=== PATIENT | female | born 1985 | race Caucasian/White ===

== ENCOUNTER 2019-01-17 20:00 | Inpatient (IN) | payer MEDICAID ==
[~2019-01-17] VITALS: Ht 157.5 cm; Wt 78.4 kg
[2019-01-17 22:16] VITALS: Ht 157.5 cm; Wt 78.4 kg
[2019-01-17] MEDS ORDERED: LACTATED RINGER'S 1,000 ML IV PRN (22:17)
[2019-01-17 22:28] VITALS: BP 109/58; PULSE 88; RESP 18
[2019-01-17] MEDS ORDERED: LIDOCAINE 1% (MPF) 30 ML INJ INJ PRN (22:30)
[2019-01-17] MEDS ORDERED: IBUPROFEN 600 MG TAB PO PRN (22:30)
[2019-01-17] MEDS ORDERED: MISOPROSTOL 200 MCG TAB PR PRN (22:30)
[2019-01-17] MEDS ORDERED: BUTORPHANOL 2 MG INJ IV PRN (22:30)
[2019-01-17] MEDS ORDERED: OXYTOCIN 30 UNITS/LR 500 ML IV PRN (22:30)
[2019-01-17] MEDS ORDERED: BUTORPHANOL 1 MG INJ IV PRN (22:30)
[2019-01-17] MEDS ORDERED: METHYLERGONOVINE 0.2 MG INJ IM PRN (22:30)
[2019-01-17] MEDS ORDERED: CARBOPROST 250 MCG INJ IM PRN (22:30)
[2019-01-17] MEDS ORDERED: OXYTOCIN 30 UNITS/LR 500 ML IV SCH ×2 (22:30)
[2019-01-17] MEDS: LACTATED RINGER'S 1,000 ML IV SCH (22:47)
[2019-01-18] MEDS ORDERED: MISOPROSTOL 50 MCG CAPSULE PO ONE
[2019-01-18] MEDS: LACTATED RINGER'S 1,000 ML IV SCH (04:55)
[2019-01-18] MEDS ORDERED: OXYTOCIN 30 UNITS/LR 500 ML IV PRN ×2 (06:00→10:00)
[2019-01-18] MEDS ORDERED: DEXTROSE 5%-LR 1,000 ML IV PRN (06:00)
[2019-01-18] MEDS ORDERED: MINERAL OIL LIGHT 10 ML VIAL TOP ONE (07:00)
[2019-01-18] MEDS: DEXTROSE 5%-LR 1,000 ML IV SCH ×2 (09:37→17:37)
[2019-01-18] MEDS ORDERED: ACETAMINOPHEN 325 MG TAB PO PRN (10:00)
[2019-01-18] MEDS ORDERED: MISOPROSTOL 200 MCG TAB PR PRN (10:00)
[2019-01-18] MEDS ORDERED: DIPHENHYDRAMINE 50 MG INJ IV PRN (10:00)
[2019-01-18] MEDS ORDERED: BENZOCAINE 20% 56 ML SPRAY TOP PRN (10:00)
[2019-01-18] MEDS ORDERED: SENNA/DOCUSATE NA (8.6MG/50MG) TAB PO PRN (10:00)
[2019-01-18] MEDS ORDERED: ZOLPIDEM 5 MG TAB PO PRN (10:00)
[2019-01-18] MEDS ORDERED: LANOLIN HPA 1 PKT TOP PRN (10:00)
[2019-01-18] MEDS ORDERED: ONDANSETRON 4 MG INJ IV PRN (10:00)
[2019-01-18] MEDS ORDERED: CARBOPROST 250 MCG INJ IM PRN (10:00)
[2019-01-18] MEDS ORDERED: WITCH HAZEL/GLYCERIN PAD PR PRN (10:00)
[2019-01-18] MEDS ORDERED: METHYLERGONOVINE 0.2 MG INJ IM PRN (10:00)
[2019-01-18 10:30] VITALS: BP 107/59; PULSE 75; RESP 18
[2019-01-18 11:30] VITALS: BP 110/52; PULSE 72; RESP 18
[2019-01-18 12:00] VITALS: BP 112/55; PULSE 77; RESP 18
[2019-01-18] MEDS: IBUPROFEN 600 MG TAB PO SCH ×3 (12:00→23:21)
[2019-01-18] MEDS: LACTATED RINGER'S 1,000 ML IV* SCH ×2 (12:02→17:37)
[2019-01-18] MEDS: OXYCODONE/ASPIRIN (4.88/325) TAB PO PRN (12:20)
[2019-01-18 16:00] VITALS: BP 113/56; PULSE 74; RESP 18
--- NOTE | 2019-01-18 18:56 | HP ---
Date/Time of Note Date/Time of Note DATE: 01/18/19 TIME: 18:52 OB - History Hx of Present Free Text/Dictation 33-year-old with single intrauterine at 40 weeks and 4 days was admitted for induction of labor. She states good movement. She denies nausea, vomiting, shortness of breath, chest pain, headache, visual changes, vaginal bleeding or LOF. Chief Complaint: Scheduled for induction of labor Estimated Due Date: Jan 14, 2019 : 4 Para: 3 Spontaneous : 0 Therapeutic : 0 Care: Good Care Ultrasounds: Normal mid trimester US Obstetrical Complications: None Medical Complications: None Past Family/Social History * Past Medical, Surgical, Family and Obstetric Histories reviewed from [facility] [place]. Blood Type: O+ Rubella: immune RPR/VDRL: Negative GBS Status: Negative HBsAG: Negative OB Admission Exam Vital Signs Vital Signs Vital Signs Date Temp Pulse Resp B/P (MAP) Pulse Ox O2 O2 Flow FiO2 Time Delivery Rate 01/18/19 98.7 74 18 113/56 Room Air 16:00 (75) Physical Exam HEENT: WNL Heart: Rhythm Normal Lungs: Clear Abdomen: WNL Extremities: Normal Cervical Dilatation: 1cm Effacement: 25% Station: -3 Membranes: Intact Heart Rate: 130's Accelerations: Accelerations Present Decelerations: No Decelerations Varibility: Moderate Contractions on Admission: >10 Minutes Apart Intensity: Mild Last 72 hours Lab Results CBC & BMP 01/17/19 22:38 OB Assessment/Plan Other plan: 33-year-old 4 para 3003 with single intrauterine at 40 weeks and 4 days admitted for induction of labor. - FHR: No sign of metabolic acidosis- Category I - Continuous EFM, toco - CBC, blood type and screen - Analgesia options with R/B/A discussed in detail with patient - Epidural per patient request - Please see the orders - O+/Rubella: Immune - GBS: negative Admission, procedures, expectations, risks and possible complications have been discussed in detail with the patient. Risk of vaginal delivery including but not limited to bleeding, infection, cervical laceration, placental retention, injury to fetus, blood transfusion, blood transfusion related infection, risk of anesthesia, adhesion, cervical laceration, episiotomy/laceration, possible delivery with risk of bleeding, infection, injury to other organs (bowel, bladder, ureter, vessels, nerves), injury to fetus, blood transfusion, blood transfusion related infection, risk of anesthesia, scar and hernia formation, needs for future , removal of uterus or any other indicated surgery discussed with the patient. She expressed understanding and repeats the risks. All of her questions were answered. She signed the informed consent. PHYSICIAN'S VERIFICATION OF INFORMED CONSENT The patient was counseled regarding the procedure, its indications, risks, potential complications and alternatives and any questions were answered. Consent was obtained. PLANNED PROCEDURE/TREATMENT: Vaginal delivery, episiotomy, repair of laceration possible delivery IVANNA SIMONS Jan 18, 2019 18:56
--- NOTE | 2019-01-18 19:00 | LDN ---
Date/Time of Note Date/Time of Note DATE: 01/18/19 TIME: 18:56 Delivery Summary 33-year-old 4 para 3003 with single intrauterine at 40 weeks and 4 days with bradycardia. Vacuum delivery with risks benefits alternatives discussed in detail with patient and her . Both expressed understanding. All of their questions answered. Shehad vacuum assisted delivery. She delivered a viable female over first-degree vaginal laceration. Nose and mouth suction. There was tight nuchal cord x1 which clamped and cut. Rest of body delivered. Baby given to the nurse. Placenta delivered spontaneously and intact with three-vessel cord. Laceration repaired with 3-0 chromic with SH needle. Patient tolerated procedure well. Time of delivery 07:21 Weight 5 pounds 15 ounces Height 19 inches 8 at 1 minutes and 9 at 5 minutes EBL 250 mL Weeks of Gestation 40 weeks and 4 days Assisted Vaginal Delivery: Vacuum Placenta Delivered: Spontaneously Episiotomy: No Estimated blood loss: 250 Sponge & Needle done & correct: Yes All needle counts correct: Yes Any foreign bodies felt in the: No Delivery Information Sex Sex: female Apgars 1 Minute: 8 5 Minute: 9 10 Minute: 10 Suctioning Nose & mouth suctioned at aditya: Yes Umbilical Cord Umbilical cord with: 3 Vessels Cord presentations: nuchal cord Nuchal cord present X: 1 Cord Blood was obtained: Yes Mother & Baby Disposition Disposition Mom & Baby to Maternity; Good: Yes IVANNA SIMONS Jan 18, 2019 19:00
[2019-01-18 19:55] VITALS: BP 97/47; PULSE 66; RESP 18
[2019-01-19] VITALS: BP 88/45; PULSE 71; RESP 17
[2019-01-19 04:00] VITALS: BP 99/49; PULSE 68; RESP 18
[2019-01-19] MEDS: IBUPROFEN 600 MG TAB PO SCH ×4 (06:06→23:12)
[2019-01-19 08:45] VITALS: BP 102/55; PULSE 70; RESP 18
[2019-01-19 16:00] VITALS: BP 113/74; PULSE 72; RESP 18
[2019-01-19 20:25] VITALS: BP 108/54; PULSE 86; RESP 18
[2019-01-19] MEDS: OXYCODONE/ASPIRIN (4.88/325) TAB PO PRN (20:42)
[2019-01-20 04:00] VITALS: BP 103/51; PULSE 71; RESP 19
[2019-01-20] MEDS: IBUPROFEN 600 MG TAB PO SCH ×2 (05:42→12:26)
[2019-01-20 08:00] VITALS: BP 112/62; PULSE 71; RESP 18
[2019-01-20] MEDS ORDERED: MEASLES,MUMPS,RUBELLA VACCINE INJ SC* ONE (09:00)
[2019-01-20] MEDS ORDERED: DIPHTH/TET/ACEL PERTUSS (ADULT) 0.5 ML VIAL IM* ONE (09:00)
--- NOTE | 2019-01-20 12:56 | DS ---
Date/Time of Note Date/Time of Note DATE: 01/20/19 TIME: 12:54 Obstetrical Discharge Record Final Diagnosis Final Diagnosis: Term delivered Vaginal Delivery Obstetrical Delivery: Vacuum Extraction, Laceration, Repaired Complications Induction: Yes Rupture of Membranes: No Condition on Discharge Physical Assessment Last Vitals: vss afebrile brittaney calf tenderness doppler u/s brittaney LE, if neg d/s home today Voiding: Yes Bowel Movement: No Breast: Soft, non-tender Fundus: Firm Abdomen and Incision: n/a Episiotomy: n/a Calf Tenderness: Yes Patient Condition: Stable MARY ELLEN ANTONIO MD Jan 20, 2019 12:56
--- NOTE | 2019-01-20 12:58 | PD.PPDC ---
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 Instruction Diagnosis [id number] Final Diagnosis: [id number] s/p vaccum assist VD Condition [id number] Patient Condition: Uhmjj0d Stable Diet [id number] Diet: Fvudr0i Resume Regular Diet Activity/Restrictions [id number] Activity: Sfmme1d May Shower [id number] Restrictions: Rdnch7u No Lifting No Sexual Activity Nothing in the Vagina No [place] No Tampons, douche Follow-up Follow-up with Physician: 2, Week/Weeks Return to clinic for [id number] GEOMAGNETIST Instructions: Seype0n Fever greater than 101 Chills Worsening abdominal pain Excessive Vaginal Bleeding More than 2 pads per hour Unable to tolerate diet Ungot0Ic OB Instructions: Eyaes0v Breast Tenderness Depression Blurried Vision Headache MARY ELLEN ANTONIO MD Jan 20, 2019 12:58
[2019-01-20 16:19] VITALS: BP 115/70; PULSE 70; RESP 18
== END 2019-01-20 18:44 | disposition home or self-care (01) | DRG 807 ==
LOC: L-D 20:49 → MS1 01-18 10:43
PROVIDERS: ADMIT Obstetrics & Gynecology; ATTEND Obstetrics & Gynecology
PROC: 10D07Z6 Extraction of Products of Conception, Vacuum, Via Natural or Artificial Opening (ICD-10-PCS; principal; 2019-01-18)
PROC: 0HQ9XZZ Repair Perineum Skin, External Approach (ICD-10-PCS; 2019-01-18)
DX: O76 Abnormality in fetal heart rate and rhythm complicating labor and delivery (principal); Z37.0 Single live birth; O70.0 First degree perineal laceration during delivery; O69.1XX0 Labor and delivery complicated by cord around neck, with compression, not applicable or unspecified; Z3A.40 40 weeks gestation of pregnancy
CPT/HCPCS: 76815; 85025; 85610; 85730; 86592; 86850; 86900; 86901; 93970; 99464; J2210; J2590; J7120; J7121